=== PATIENT | male | born 1985 | race Caucasian/White ===

== ENCOUNTER 2020-05-04 22:48 | Emergency (ER) | payer OTHER ==
[2020-05-04 22:53] VITALS: BP 145/91; RESP 18; TEMP 97.9
[2020-05-04] MEDS ORDERED: DIPH,PERTUS(ACELL)TETVAC-LF 0.5 ML VIAL IM ONE (23:05)
[2020-05-04] MEDS ORDERED: TOPICAL SKIN ADHESIVE 1 EACH AMP TOPICAL ONE (23:05)
--- NOTE | 2020-05-04 23:20 | ED ---
General Adult HPI - General Chief complaint: Wound/Laceration Stated complaint: finger lac Time Seen by Provider: 05/04/20 22:57 Source: patient, RN notes reviewed, old records reviewed Mode of arrival: ambulatory Limitations: no limitations - History of Present Illness Initial comments: 35-year-old male presenting for evaluation of laceration to the right third digit. Patient had cut this on a metal can just prior to arrival. No other injuries. He's had some bleeding and his tetanus is not up-to-date. - Related Data Allergies Allergy/AdvReac Type Severity Reaction Status Date / Time Sulfa (Sulfonamide Allergy Nausea Verified 05/04/20 22:53 Antibiotics) Review of Systems ROS Statement: Those systems with pertinent positive or pertinent negative responses have been documented in the HPI. ROS Other: All systems not noted in ROS Statement are negative. Past Medical History Past Medical History: No Reported History History of Any Multi-Drug Resistant Organisms: None Reported Past Surgical History: No Surgical Hx Reported Past Psychological History: No Psychological Hx Reported Smoking Status: Never smoker Past Alcohol Use History: None Reported Past Drug Use History: None Reported General Exam Limitations: no limitations General appearance: alert, in no apparent distress Head exam: Present: atraumatic, normocephalic Eye exam: Present: normal appearance, PERRL ENT exam: Present: normal exam Neck exam: Present: normal inspection. Absent: tenderness, meningismus Respiratory exam: Present: normal lung sounds bilaterally. Absent: respiratory distress, wheezes Cardiovascular Exam: Present: regular rate, normal rhythm GI/Abdominal exam: Present: soft. Absent: distended, tenderness, guarding Extremities exam: Present: other (U shaped laceration on the lateral aspect of the third digit right hand.) Neurological exam: Present: alert, oriented X3, CN II-XII intact. Absent: motor sensory deficit Psychiatric exam: Present: normal affect, normal mood Skin exam: Present: warm, dry, intact. Absent: cyanosis, diaphoretic Course Vital Signs 05/04/20 22:49 Temperature 97.9 F Pulse Rate 110 H Respiratory 18 Rate Blood Pressure 145/91 O2 Sat by Pulse 98 Oximetry Procedures - Laceration Laceration #1 Consent Obtained: verbal consent Indication: laceration Site: upper extremity Size (cm): 2 Description: flap, avulsion Type of Sutures: other (Skin adhesive) Patient Tolerated Procedure: well Medical Decision Making - Medical Decision Making 35-year-old male with laceration, flap on the third digit right hand appr oximately 2 cm in length, this clean, this is irrigated in the emergency department with tap water. It is repaired with skin adhesive. Patient's tetanus is updated. Disposition Clinical Impression: Laceration Disposition: HOME SELF-CARE Condition: Good Instructions (If sedation given, give patient instructions): Laceration (ED) Is patient prescribed a controlled substance at d/c from ED?: No Referrals: None,Stated [Primary Care Provider] - 1-2 days Jaden Masterson MD [REFERRING] - 1-2 days Time of Disposition: 23:20
[2020-05-04 23:53] VITALS: PULSE 102
== END 2020-05-04 23:53 | disposition home or self-care (01) ==
LOC: EC 22:48
DX: S61.212A Laceration without foreign body of right middle finger without damage to nail, initial encounter (principal); Z88.2 Allergy status to sulfonamides; W26.8XXA Contact with other sharp object(s), not elsewhere classified, initial encounter; Z23 Encounter for immunization
CPT/HCPCS: 12001; 90471; 90715; 99283

== ENCOUNTER → 2020-07-28 | Outpatient (CLI) | payer OTHER ==
--- NOTE | 2020-07-29 07:40 | US ---
EXAMINATION TYPE: US venous doppler duplex LE RT DATE OF EXAM: 07/28/2020 5:15 PM COMPARISON: NONE CLINICAL HISTORY: R22.41 Localized swelling, mass lump right limb. Swelling in right lower leg and kn ee. No hx DVT. SIDE PERFORMED: Right TECHNIQUE: The lower extremity deep venous system is examined utilizing real time linear array sonog bernard with graded compression, doppler sonography and color-flow sonography. VESSELS IMAGED: External Iliac Vein (EIV) Common Femoral Vein Deep Femoral Vein Greater Saphenous Vein * Femoral Vein Popliteal Vein Small Saphenous Vein * Proximal Calf Veins (* superficial vessels) Right Leg: Negative for DVT IMPRESSION: No evidence for DVT at this time.
== END | disposition home or self-care (01) ==
LOC: RADUSWWP 16:51
PROVIDERS: ATTEND Orthopaedic Surgery
DX: M25.561 Pain in right knee (principal); R22.41 Localized swelling, mass and lump, right lower limb; I80.3 Phlebitis and thrombophlebitis of lower extremities, unspecified

== ENCOUNTER 2022-08-26 19:41 | Emergency (ER) | payer BC, OTHER ==
[2022-08-26 20:21] VITALS: BP 164/95; PULSE 90; RESP 18; TEMP 98.4
[2022-08-26] MEDS ORDERED: CEPHALEXIN 500MG STARTER PACK 4 CAP BTL PO STA (21:26)
[2022-08-26] MEDS ORDERED: SULFAMETH-TMP DS STARTER PACK 2 TAB BTL PO STA (21:26)
--- NOTE | 2022-08-26 21:29 | ED ---
Extremity Problem HPI - General Chief complaint: Extremity Problem,Nontraumatic Stated complaint: R arm rash Time Seen by Provider: 08/26/22 20:57 Source: patient, RN notes reviewed Mode of arrival: ambulatory Limitations: no limitations - History of Present Illness Initial comments: This is an otherwise healthy 37-year-old male who presents complaining of swelling to his right hand and wrist area. Patient states he ended up getting poison cornelius a few weeks ago and had irritation to skin on both hands. However he states over the past few days he started getting some swelling and irritation in addition to the poison cornelius. Patient denying any lymphadenopathy. No lymphangitis. No fever. States he feels well otherwise. No headache, no fever or chills, no changes in vision or hearing, no sore throat or difficulty with speech, no neck pain, no chest pain or shortness of breath, no abdominal pain, no nausea or vomiting, no changes in urination or bowel movements, no numbness or tingling, no skin rashes or lesions. Past medical, surgical, social, and family history reviewed. - Related Data Previous Rx's Medication Instructions Recorded Acetaminophen Tab [Tylenol Tab] 500 mg PO Q6H PRN #24 tablet 08/26/22 Cephalexin [Keflex] 500 mg PO Q6HR #40 cap 08/26/22 Ibuprofen [Motrin] 600 mg PO Q8HR PRN #30 tab 08/26/22 Allergies Allergy/AdvReac Type Severity Reaction Status Date / Time Sulfa (Sulfonamide Allergy Nausea Verified 08/26/22 20:21 Antibiotics) Review of Systems ROS Statement: Those systems with pertinent positive or pertinent negative responses have been documented in the HPI. ROS Other: All systems not noted in ROS Statement are negative. Past Medical History Past Medical History: No Reported History History of Any Multi-Drug Resistant Organisms: None Reported Past Surgical History: No Surgical Hx Reported Past Psychological History: No Psychological Hx Reported Smoking Status: Never smoker Past Alcohol Use History: Occasional Past Drug Use History: None Reported General Exam - General Exam Comments Initial Comments: Stable appearing 37-year-old male in no distress. Vital signs stable, patient afebrile. normal perfusion. No mottling, capillary refill less than 2 seconds Limitations: no limitations General appearance: alert, in no apparent distress Head exam: Present: atraumatic, normocephalic, normal inspection Eye exam: Present: normal appearance, PERRL, EOMI. Absent: scleral icterus, c onjunctival injection, periorbital swelling ENT exam: Present: normal exam, mucous membranes moist Neck exam: Present: normal inspection. Absent: tenderness, meningismus, lymphadenopathy Respiratory exam: Present: normal lung sounds bilaterally. Absent: respiratory distress, wheezes, rales, rhonchi, stridor Cardiovascular Exam: Present: regular rate, normal rhythm, normal heart sounds. Absent: systolic murmur, diastolic murmur, rubs, gallop, clicks GI/Abdominal exam: Present: soft. Absent: distended, tenderness, guarding, rebound, rigid Extremities exam: Present: full ROM, tenderness (Minimal soft tissue tenderness to the dorsum of the right hand and right wrist.), normal capillary refill, other (Patient has what appears to be secondary soft tissue infection involving the right hand and wrist. No evidence of joint space infection. No lymphangitis. No axillary adenopathy.). Absent: normal inspection, pedal edema, joint swelling, calf tenderness Back exam: Present: normal inspection Neurological exam: Present: alert, oriented X3, CN II-XII intact Psychiatric exam: Present: normal affect, normal mood Skin exam: Present: warm, dry, intact, normal color. Absent: rash Course Vital Signs 08/26/22 20:18 Temperature 98.4 F Pulse Rate 90 Respiratory 18 Rate Blood Pressure 164/95 O2 Sat by Pulse 100 Oximetry Medical Decision Making - Medical Decision Making Patient's presentation, symptomology, clinical findings consistent with a secondary infection involving the right hand and wrist area. Patient had contact dermatitis and subsequently has developed mild cellulitis of the area. Does not appear to be consistent with vascular insult. Not consistent with systemic infection. Will treat with cephalexin. Patient started here. Patient educated on conservative measures otherwise. She was understanding. Patient was told to return to the ER for any signs or symptoms worsen. Told to return immediately if any other problems arise. All questions answered. Treatment plan discussed. Patient in agreement Every effort has been made to ensure accuracy of this dictation. However, due to the limitations of electronic medical records and dictation devices, errors in charting still occur. Supervising physician Dr. Keen - Radiology Data No indication for imaging at this time Disposition Clinical Impression: Cellulitis of right hand Disposition: HOME SELF-CARE Condition: Good Instructions (If sedation given, give patient instructions): Cellulitis (ED) Additional Instructions: Elevate the hand as much as possible. Take antibiotic as directed. Return to the emergency department for reevaluation in 48 hours for recheck. Follow-up with your regular physician as directed. Return to the ER immediately if any symptoms worsen, new symptoms arise, or any other problems develop. Prescriptions: Cephalexin [Keflex] 500 mg PO Q6HR #40 cap Ibuprofen [Motrin] 600 mg PO Q8HR PRN #30 tab PRN Reason: Pain Acetaminophen Tab [Tylenol Tab] 500 mg PO Q6H PRN #24 tablet PRN Reason: Pain Is patient prescribed a controlled substance at d/c from ED?: No Referrals: None,Stated [Primary Care Provider] - 1-2 days Time of Disposition: 21:29
== END 2022-08-26 22:12 | disposition home or self-care (01) ==
LOC: EC 19:41
DX: L03.113 Cellulitis of right upper limb (principal); Z79.899 Other long term (current) drug therapy; Z88.2 Allergy status to sulfonamides
CPT/HCPCS: 99282; 99283